=== PATIENT | female | born 1935 | race Caucasian/White ===

== ENCOUNTER 2018-02-16 19:58 | Emergency (ER) | payer OTHER ==
[~2018-02-16] VITALS: Ht 154.9 cm; Wt 70.3 kg
--- NOTE | 2018-02-16 20:00 | NUR ---
PT TO ER BED 1. BBRA C/C LEFT EAR AND LEFT ARM PAIN S/P FALL. - KO. -N/V. PT PLACED ON [employer]EL[employer]. VSS/RESP EVEN UNLABORED/NAD NOTED/SKIN WARM AND DRY/AFEBRILE/ DENIES N-V-D/AOX4. AWAITNG MD VÁSQUEZ.
[2018-02-16] MEDS ORDERED: LIDOCAINE 1% INJ 50 ML MDV IJ ONE ×2 (20:35→21:30)
--- NOTE | 2018-02-16 21:12 | NUR ---
NOTED LACERATION TO L ELBOW.
[2018-02-16] MEDS ORDERED: ACETAMINOPHEN ES 500 MG TABLET ONE (21:25)
[2018-02-16] MEDS ORDERED: TDAP [DIPH/PERTUSSIS/TET] 0.5 ML VIAL IM ONE ×2 (21:25→21:30)
[2018-02-16] MEDS ORDERED: ACETAMINOPHEN ES 500 MG TABLET PO ONE (21:30)
--- NOTE | 2018-02-16 21:33 | NUR ---
PT IN CT.
--- NOTE | 2018-02-16 22:00 | NUR ---
FRENCH TRANSLATOR AT BEDSIDE FOR SUTURE.
--- NOTE | 2018-02-16 22:24 | NUR ---
EMT AT BEDSIDE FOR EKG.
--- NOTE | 2018-02-16 22:26 | NUR ---
LAB AT BEDSIDE FOR DRAW.
--- NOTE | 2018-02-16 22:38 | NUR ---
PER PATIENT RELATIONS COORDINATOR CANCEL LABS/EKG/XRAY. PT IS BEING DISCHARGED PER DR. DOHERTY.
[2018-02-16 22:42] LABS: BASOPHILS % (AUTO) 0.4 % (0.0-2.0); EOSINOPHILS % (AUTO) 0.7 % (0.0-6.0); HEMATOCRIT 48 % (33-45); HEMOGLOBIN 13.1 g/dL (11.5-14.8); LYMPHOCYTES # (AUTO) 1.8 /CMM (0.8-4.8); LYMPHOCYTES % (AUTO) 23.8 % (20.0-44.0); MEAN CORPUSCULAR HEMOGLOBIN 26 PG (26.0-33.0); MEAN CORPUSCULAR HGB CONC 27 g/dl (31.0-36.0); MEAN CORPUSCULAR VOLUME 93 fL (82-100); MONOCYTES # (AUTO) 0.5 /CMM (0.1-1.30); MONOCYTES % (AUTO) 7.2 % (2.0-12.0); NEUTROPHILS # (AUTO) 5.1 /CMM (1.8-8.9); NEUTROPHILS % (AUTO) 67.9 % (43.0-81.0); PLATELET COUNT (AUTO) 195 /CMM (150-450); RDW COEFFICIENT OF VARIATION 13.8 (11.5-15.0); RED BLOOD CELL COUNT(AUTO) 5.13 MIL/uL (4.0-5.2); WHITE BLOOD COUNT (AUTO) 7.6 K/uL (4.3-11.0)
--- NOTE | 2018-02-16 22:58 | NUR ---
IV removed. Catheter intact and site benign. Pressure and 4x4 applied to site. No bleeding noted. Patient discharged with family to home in stable condition. Written and verbal after care instructions given. Patient verbalizes understanding of instruction. Patient is awake and alert to self, day, and place. Patient ambulatory with a steady gait.
[2018-02-16 23:01] VITALS: BP 155/79
== END 2018-02-16 23:03 | disposition other institution (70) ==
LOC: ER 20:00
DX: S01.312A Laceration without foreign body of left ear, initial encounter (principal); S51.012A Laceration without foreign body of left elbow, initial encounter; S09.8XXA Other specified injuries of head, initial encounter; J45.909 Unspecified asthma, uncomplicated; I10 Essential (primary) hypertension; R93.0 Abnormal findings on diagnostic imaging of skull and head, not elsewhere classified; W10.0XXA Fall (on)(from) escalator, initial encounter; Y93.I9 Activity, other involving external motion; Y92.89 Other specified places as the place of occurrence of the external cause; Y99.8 Other external cause status
CPT/HCPCS: 12001; 12011; 36415; 70450; 85025; 90471; 90715; 99285; A4606; A6402; J3490; Z7610; 80048-TC